=== PATIENT | male | born 1930 | race Caucasian/White ===

== ENCOUNTER 2019-11-14 14:53 | Emergency (ER) | payer OTHER ==
[2019-11-14] MEDS ORDERED: HYDRALAZINE HCL 20 MG/ML VIAL ONE ×2 (16:02→16:54)
[2019-11-14 16:30] LABS: Absolute Lymphocytes (CBC) 1.3 K/uL (0.7-4.9); Basophils % 0.8 % (0-1.3); Lymphocytes % 20.4 % (15.3-44.8); MPV 10.5 fL (7.6-11.3); RBC Red Blood Cell Count 5.02 M/uL (4.33-5.43)
[2019-11-14 16:32] LABS: Potassium 4.2 mmol/L (3.5-5.1)
[2019-11-14] MEDS ORDERED: METOPROLOL TARTRATE 5 MG/5 ML INJ IV ONE (16:54)
--- NOTE | 2019-11-14 17:18 | EDPHYS ---
Physician Documentation [facility] Name: Sandeep Bowie Age: 89 yrs Sex: Male : 1930 Arrival Date: 11/14/2019 Time: 14:56 Bed 28 Private MD: ED Physician Dylan Bryant HPI: 11/13 16:36 This 89 yrs old Male presents to ER via EMS with complaints of High Blood jr8 Pressure. 16:36 The patient has elevated blood pressure and discovered this at a physician's office, [facility] and sent to the emergency department for evaluation. Onset: The symptoms/episode began/occurred acutely, today. Associated signs and symptoms: The patient has no apparent associated signs or symptoms. Severity of symptoms: At its worst the blood pressure was moderate, in the emergency department the blood pressure is unchanged. It is unknown whether or not the patient has had similar symptoms in the past. The patient has been recently seen by a physician:. Patient was at PCP office for routine check up today. Stated that they found that his blood pressure was markedly elevated and that they wanted him evaluated in ED and then started him on new medications. Patient denies having any symptoms . Historical: - Allergies: 15:04 No Known Allergies; vc - Home Meds: 15:04 carvedilol 25 mg oral tab 1 tab 2 times per day [Active]; amlodipine 5 mg tab 1 tab vc once daily [Active]; - PMHx: 15:04 Hypertension; vc - PSHx: 15:04 None; vc - Immunization history:: Adult Immunizations up to date, Flu vaccine is up to date. - Social history:: Smoking status: Patient denies any tobacco usage or history of. ROS: 16:36 Eyes: Negative for injury, pain, redness, and discharge, ENT: Negative for injury, jr8 pain, and discharge, Neck: Negative for injury, pain, and swelling, Cardiovascular: Negative for chest pain, palpitations, and edema, Respiratory: Negative for shortness of breath, cough, wheezing, and pleuritic chest pain, Abdomen/GI: Negative for abdominal pain, nausea, vomiting, diarrhea, and constipation, Back: Negative for injury and pain, MS/Extremity: Negative for injury and deformity, Skin: Negative for injury, rash, and discoloration, Neuro: Negative for headache, weakness, numbness, tingling, and seizure. Exam: 16:36 Eyes: Pupils equal round and reactive to light, extra-ocular motions intact. Lids and jr8 lashes normal. Conjunctiva and sclera are non-icteric and not injected. Cornea within normal limits. Periorbital areas with no swelling, redness, or edema. ENT: Nares patent. No nasal discharge, no septal abnormalities noted. Tympanic membranes are normal and external auditory canals are clear. Oropharynx with no redness, swelling, or masses, exudates, or evidence of obstruction, uvula midline. Mucous membranes moist. Neck: Trachea midline, no thyromegaly or masses palpated, and no cervical lymphadenopathy. Supple, full range of motion without nuchal rigidity, or vertebral point tenderness. No Meningismus. Cardiovascular: Regular rate and rhythm with a normal S1 and S2. No gallops, murmurs, or rubs. Normal PMI, no JVD. No pulse deficits. Respiratory: Lungs have equal breath sounds bilaterally, clear to auscultation and percussion. No rales, rhonchi or wheezes noted. No increased work of breathing, no retractions or nasal flaring. Abdomen/GI: Soft, non-tender, with normal bowel sounds. No distension or tympany. No guarding or rebound. No evidence of tenderness throughout. Back: No spinal tenderness. No costovertebral tenderness. Full range of motion. Skin: Warm, dry with normal turgor. Normal color with no rashes, no lesions, and no evidence of cellulitis. MS/ Extremity: Pulses equal, no cyanosis. Neurovascular intact. Full, normal range of motion. Neuro: Awake and alert, GCS 15, oriented to person, place, time, and situation. Cranial nerves II-XII grossly intact. Motor strength 5/5 in all extremities. Sensory grossly intact. Cerebellar exam normal. Normal gait. 16:36 ECG was reviewed by the Attending Physician. Vital Signs: 15:00 BP 214 / 98; Pulse 79; Resp 20; Temp 97.9(O); Pulse Ox 100% ; lt1 15:30 BP 171 / 146; Pulse 76; Resp 18; Pulse Ox 100% on R/A; vc 16:00 BP 212 / 108; Pulse 75; Resp 18; Pulse Ox 100% on R/A; vc 17:00 BP 175 / 100; Pulse 72; Resp 18; Pulse Ox 100% on R/A; vc 17:21 BP 169 / 109; Pulse 90; Resp 19; Pulse Ox 100% on R/A; vc MDM: 15:45 Patient medically screened. jr8 17:16 Data reviewed: vital signs, nurses notes, lab test result(s), EKG. Data interpreted: jr8 Pulse oximetry: on room air is 100 %. Interpretation: normal. Counseling: I had a detailed discussion with the patient and/or guardian regarding: the historical points, exam findings, and any diagnostic results supporting the discharge/admit diagnosis, lab results, the need for outpatient follow up, a family practitioner, to return to the emergency department if symptoms worsen or persist or if there are any questions or concerns that arise at home. ED course: Patient remains asymptomatic at this time. BP slowly coming down. Will d/c home to fill prescriptions. If he were to become symptomatic to come back for further evaluation. Patient good with this. . 03 15:51 Order name: CBC with Diff [facility] 11/13 15:51 Order name: Basic Metabolic Panel [facility] 11/13 16:32 Order name: CBC with Automated Diff; Complete Time: 16:35 EDMS 11/13 16:34 Order name: Basic Metabolic Panel; Complete Time: 16:35 EDMS 11/13 15:51 Order name: IV; Complete Time: 16:10 8 11/13 15:51 Order name: EKG - Nurse/Tech; Complete Time: 15:51 jr8 EC:36 Rate is 79 beats/min. Rhythm is regular with Unifocal PVCs. Left axis deviation noted. jr8 IL interval is normal at 184 msec. QRS interval is normal at 112 msec. QT interval is normal at 428 msec. No Q waves. T waves are Normal. No ST changes noted. Clinical impression: No evidence of ischemia and Sinus Rhythm with occasional PVC. Interpreted by me. Reviewed by me. Administered Medications: 16:09 Drug: hydrALAZINE 10 mg Route: IV; Rate: calculated rate; Site: left antecubital; vc 17:33 Follow up: IV Status: Completed infusion; IV Intake: 5ml vc 17:03 Drug: hydrALAZINE 10 mg Route: IV; Rate: calculated rate; Site: left antecubital; vc 17:32 Follow up: IV Status: Completed infusion; IV Intake: 5ml vc 17:04 Drug: Metoprolol 5 mg Route: IVP; Site: left antecubital; vc 17:31 Follow up: Response: No adverse reaction; Blood pressure is lowered vc Disposition: 11/14 07:41 Co-signature as Attending Physician, Dylan Bryant MD I agree with the assessment and kdr plan of care. Disposition: 11/14/19 17:17 Discharged to Home. Impression: Essential (primary) hypertension. - Condition is Stable. - Discharge Instructions: Hypertension, DASH Eating Plan, Managing Your Hypertension. - Medication Reconciliation Form, Thank You Letter, Antibiotic Education, Prescription Opioid Use form. - Follow up: Private Physician; When: 5 - 6 days; Reason: Recheck today's complaints, Continuance of care, Re-evaluation by your physician. - Problem is new. - Symptoms have improved. Signatures: Dispatcher [employer] EDND Dylan Bryant MD MD kdr Roszak, Josh, PA PA jr8 Abigail Bruce RN RN vc Corrections: (The following items were deleted from the chart) 11/13 17:33 17:17 11/14/2019 17:17 Discharged to Home. Impression: Essential (primary) vc hypertension. Condition is Stable. Forms are Medication Reconciliation Form, Thank You Letter, Antibiotic Education, Prescription Opioid Use. Follow up: Private Physician; When: 5 - 6 days; Reason: Recheck today's complaints, Continuance of care, Re-evaluation by your physician. Problem is new. Symptoms have improved. jr8
--- NOTE | 2019-11-14 17:18 | ER ---
Nurse's Notes [facility] Name: Sandeep Bowie Age: 89 yrs Sex: Male : 1930 Arrival Date: 11/14/2019 Time: 14:56 Bed 28 Private MD: Diagnosis: Essential (primary) hypertension Presentation: 11/13 14:59 Chief complaint: EMS states: "Patient was at the [place] clinic across the street when the nurses called us stating his BP was extremely high, when we picked him up his BP was 228/130 on left arm and 216/142 on right arm. He was administered 25mg carvedilol PO at the [facility], he is asymptomatic.". Coronavirus screen: The patient has NOT traveled to a country currently being monitored by the CDC within the last 14 days. Proceed with normal triage procedures. Ebola Screen: No symptoms or risks identified at this time. Initial Sepsis Screen: Does the patient meet any 2 criteria? No. Patient's initial sepsis screen is negative. Does the patient have a suspected source of infection? No. Patient's initial sepsis screen is negative. Risk Assessment: Do you want to hurt yourself or someone else? Patient reports no desire to harm self or others. Care prior to arrival: Medication(s) given: Carvedilol 25mg IV initiated. 20 GA, in the right forearm. 14:59 Method Of Arrival: EMS: [facility] 14:59 Acuity: LEONID 3 vc 15:05 Onset of symptoms was November 14, 2019. vc Triage Assessment: 15:05 General: Appears in no apparent distress. uncomfortable, Behavior is calm, cooperative, vc appropriate for age. Pain: Denies pain. Historical: - Allergies: 15:04 No Known Allergies; vc - Home Meds: 15:04 carvedilol 25 mg oral tab 1 tab 2 times per day [Active]; amlodipine 5 mg tab 1 tab vc once daily [Active]; - PMHx: 15:04 Hypertension; vc - PSHx: 15:04 None; vc - Immunization history:: Adult Immunizations up to date, Flu vaccine is up to date. - Social history:: Smoking status: Patient denies any tobacco usage or history of. Screenin:05 Abuse screen: Denies threats or abuse. Nutritional screening: No deficits noted. vc Tuberculosis screening: No symptoms or risk factors identified. Fall Risk None identified. Assessment: 15:00 General: Appears in no apparent distress. comfortable, Behavior is calm, cooperative, vc appropriate for age. Pain: Denies pain. Neuro: Level of Consciousness is awake, alert, obeys commands, Oriented to person, place, time, situation, Appropriate for age. Cardiovascular: Denies chest pain. Respiratory: Airway is patent Respiratory effort is even, unlabored, Respiratory pattern is regular, symmetrical. GI: No signs and/or symptoms were reported involving the gastrointestinal system. : No signs and/or symptoms were reported regarding the genitourinary system. EENT: No signs and/or symptoms were reported regarding the EENT system. Derm: Skin temperature is warm. Musculoskeletal: Circulation, motion, and sensation intact. Range of motion: intact in all extremities. 16:00 Reassessment: Patient and/or family updated on plan of care and expected duration. Pain vc level reassessed. Patient is alert, oriented x 3, equal unlabored respirations, skin warm/dry/pink. Patient denies pain at this time. 17:00 Reassessment: Patient and/or family updated on plan of care and expected duration. Pain vc level reassessed. Patient is alert, oriented x 3, equal unlabored respirations, skin warm/dry/pink. Patient denies pain at this time. Vital Signs: 15:00 BP 214 / 98; Pulse 79; Resp 20; Temp 97.9(O); Pulse Ox 100% ; lt1 15:30 BP 171 / 146; Pulse 76; Resp 18; Pulse Ox 100% on R/A; vc 16:00 BP 212 / 108; Pulse 75; Resp 18; Pulse Ox 100% on R/A; vc 17:00 BP 175 / 100; Pulse 72; Resp 18; Pulse Ox 100% on R/A; vc 17:21 BP 169 / 109; Pulse 90; Resp 19; Pulse Ox 100% on R/A; vc ED Course: 14:56 Patient arrived in ED. vc 14:59 Abigail Bruce, RN is Primary Nurse. vc 15:03 Triage completed. vc 15:05 Arm band placed on. vc 15:06 Patient has correct armband on for positive identification. Placed in gown. Bed in low vc position. Call light in reach. vehicle monitor technician on. Pulse ox on. NIBP on. 15:44 Morris Daley PA is PHCP. jr8 15:44 Dylan Bryant MD is Attending Physician. jr8 16:10 Basic Metabolic Panel Sent. vc 16:10 CBC with Diff Sent. vc 17:32 No provider procedures requiring assistance completed. IV discontinued, intact, vc bleeding controlled, No redness/swelling at site. Pressure dressing applied. Administered Medications: 16:09 Drug: hydrALAZINE 10 mg Route: IV; Rate: calculated rate; Site: left antecubital; vc 17:33 Follow up: IV Status: Completed infusion; IV Intake: 5ml vc 17:03 Drug: hydrALAZINE 10 mg Route: IV; Rate: calculated rate; Site: left antecubital; vc 17:32 Follow up: IV Status: Completed infusion; IV Intake: 5ml vc 17:04 Drug: Metoprolol 5 mg Route: IVP; Site: left antecubital; vc 17:31 Follow up: Response: No adverse reaction; Blood pressure is lowered vc Intake: 17:32 IV: 5ml; Total: 5ml. vc 17:33 IV: 5ml; Total: 10ml. vc Outcome: 17:17 Discharge ordered by . jr8 17:32 Discharged to home ambulatory, with family. vc 17:32 Condition: good 17:32 Discharge instructions given to patient, Instructed on discharge instructions, follow up and referral plans. Demonstrated understanding of instructions, follow-up care. 17:33 Patient left the ED. vc Signatures: Morris Daley PA PA jr8 Michelle lt1 Abigail Bruce RN RN vc
[2019-11-14 18:06] VITALS: TEMP 97.9; O2SAT 100
[2019-11-14 18:12] VITALS: BP 169/109
--- NOTE | 2019-11-15 12:33 | EKG ---
Test Date: 2019-11-14 Test Time: 14:59:31 Int[facility] Care [facility] Paramedic: ELIUD MEASUREMENT RESULTS: Intervals: Rate: 79 NH: 184 QRSD: 112 QT: 374 QTc: 428 [place]: P: 40 NH: 184 QRS: -35 T: 62 INTERPRETIVE STATEMENTS: Sinus rhythm with occasional premature ventricular complexes Left axis deviation Abnormal ECG No previous ECG available for comparison Electronically Signed On 11-15-19 12:30:54 CDT by Harrison Hitchcock
== END 2019-11-14 17:33 | disposition home or self-care (01) ==
LOC: ER 14:53
DX: I10 Essential (primary) hypertension (principal)
CPT/HCPCS: 96365; 93005; 85025; 80048; 36415; 96375; 99284; J0360 ×2

== ENCOUNTER 2020-06-06 23:20 | Emergency (ER) | payer OTHER ==
[2020-06-06] MEDS ORDERED: DERMABOND SKIN ADHESIVE TOP ONE (23:50)
[2020-06-06] MEDS ORDERED: LIDOCAINE 1% MPF 30 ML VIAL ONE (23:50)
[2020-06-07] MEDS ORDERED: TETANUS & DIPHTHERIA TOX,ADULT 0.5 ML VIAL ONE (00:42)
[2020-06-07] MEDS ORDERED: DERMABOND SKIN ADHESIVE TOP ONE (00:57)
[2020-06-07 01:00] LABS: Absolute Lymphocytes (CBC) 1.6 K/uL (0.7-4.9); Basophils % 1.2 % (0-1.3); Hematocrit 42.2 % (39.6-49.0); Lymphocytes % 22.8 % (15.3-44.8); MPV 9.5 fL (7.6-11.3)
[2020-06-07 01:08] LABS: Protime INR 1.12
[2020-06-07 01:30] LABS: Albumin 3.5 g/dL (3.4-5.0); Bilirubin Direct 0.2 mg/dL (0-0.2); Bilirubin Total 0.6 mg/dL (0.2-1.0); Potassium 3.6 mmol/L (3.5-5.1); Protein, Total 7.1 g/dL (6.4-8.2)
--- NOTE | 2020-06-07 01:56 | EDPHYS ---
Physician Documentation [facility] Name: Sandeep Bowie Age: 89 yrs Sex: Male : 1930 Arrival Date: 06/06/2020 Time: 23:25 Bed 4 Private MD: ED Physician Gurjit Jaramillo HPI: 06/07 00:01 This 89 yrs old Male presents to ER via EMS with complaints of Fall Injury. mh7 00:01 Details of fall: The patient fell from an upright position, while walking. Onset: The mh7 symptoms/episode began/occurred just prior to arrival, today. Associated injuries: The patient sustained injury to the head, abrasion, laceration, of the scalp. Severity of symptoms: At their worst the symptoms were moderate, just prior to arrival, in the emergency department the symptoms are unchanged. Patient was at a bar and had multiple beers and had some witnessed falls. He then went home and fell. His son called EMS to bring him to the hospital.. Historical: - Allergies: 06/06 23:37 No Known Allergies; rv - PMHx: 23:37 Hypertension; rv - PSHx: 23:37 None; rv - Immunization history: Last tetanus immunization: unknown. - Social history:: Smoking status: Patient denies any tobacco usage or history of. ROS: 06/07 00:20 Constitutional: Negative for fever, chills, and weight loss, Eyes: Negative for injury, mh7 pain, redness, and discharge, ENT: Negative for injury, pain, and discharge, Neck: Negative for injury, pain, and swelling, Cardiovascular: Negative for chest pain, palpitations, and edema, Respiratory: Negative for shortness of breath, cough, wheezing, and pleuritic chest pain, Abdomen/GI: Negative for abdominal pain, nausea, vomiting, diarrhea, and constipation, Back: Negative for injury and pain, : Negative for injury, bleeding, discharge, and swelling, MS/Extremity: Negative for injury and deformity, Neuro: Negative for headache, weakness, numbness, tingling, and seizure, Psych: Negative for depression, anxiety, suicide ideation, homicidal ideation, and hallucinations, Allergy/Immunology: Negative for hives, rash, and allergies, Endocrine: Negative for neck swelling, polydipsia, polyuria, polyphagia, and marked weight changes, Hematologic/Lymphatic: Negative for swollen nodes, abnormal bleeding, and unusual bruising. Exam: 00:20 Constitutional: This is a well developed, well nourished patient who is awake, alert, mh7 and in no acute distress. 00:20 Eyes: Pupils equal round and reactive to light, extra-ocular motions intact. Lids and lashes normal. Conjunctiva and sclera are non-icteric and not injected. Cornea within normal limits. Periorbital areas with no swelling, redness, or edema. ENT: Nares patent. No nasal discharge, no septal abnormalities noted. Tympanic membranes are normal and external auditory canals are clear. Oropharynx with no redness, swelling, or masses, exudates, or evidence of obstruction, uvula midline. Mucous membranes moist. Neck: Trachea midline, no thyromegaly or masses palpated, and no cervical lymphadenopathy. Supple, full range of motion without nuchal rigidity, or vertebral point tenderness. No Meningismus. Chest/axilla: Normal chest wall appearance and motion. Nontender with no deformity. No lesions are appreciated. Cardiovascular: Regular rate and rhythm with a normal S1 and S2. No gallops, murmurs, or rubs. Normal PMI, no JVD. No pulse deficits. Respiratory: Lungs have equal breath sounds bilaterally, clear to auscultation and percussion. No rales, rhonchi or wheezes noted. No increased work of breathing, no retractions or nasal flaring. Abdomen/GI: Soft, non-tender, with normal bowel sounds. No distension or tympany. No guarding or rebound. No evidence of tenderness throughout. Back: No spinal tenderness. No costovertebral tenderness. Full range of motion. 00:20 Head/face: Exam is negative for fuentes signs, deformity, ecchymosis, erythema, raccoon eyes, Noted is a laceration(s), that is superficial, of the scalp, multiple. 00:20 Skin: 00:20 Neuro: 02:00 Skin: mh7 02:00 Neuro: Orientation: is normal, Mentation: is normal, Memory: is normal, Cranial nerves: grossly normal, Cerebellar function: is grossly normal, Motor: is normal, Sensation: is normal, Gait: is unsteady, Deep tendon reflexes are normal, Babinski testing is normal, seizure activity, is not displayed by the patient, Abnormal movements: there are no abnormal movements. 05:28 Musculoskeletal/extremity: Extremities: noted in the left forearm: skin tear, ROM: mh7 intact in all extremities, Circulation is intact in all extremities. Pulses: are normal with no appreciated deficits, Perfusion: the patient is normally perfused throughout, Perfusion: the extremity is normally perfused throughout, Sensation intact. Compartment Syndrome exam of affected extremity: is normal. no pain, no numbness, no tingling, no sensation deficit, no palor, no weak pulses, Joints: All joints appear normal with full range of motion. 05:28 Skin: injury, laceration(s), the wound is approximately 8 cm(s), with a depth of 0.5 cm(s), of the scalp, the second wound is approximately 6 cm(s), with a depth of 0.25 cm(s), of the left forearm, that can be described as Vital Signs: 06/06 23:33 BP 204 / 104; Pulse 66; Resp 17; Temp 97.6; Pulse Ox 100% ; Weight 81.65 kg; Height 5 rv ft. 11 in. (180.34 cm); Pain 0/10; 06/07 00:30 BP 175 / 90; Pulse 72; Resp 17; Pulse Ox 99% on R/A; rv 01:30 BP 189 / 102; Pulse 67; Resp 16; Pulse Ox 98% on R/A; rv 02:15 BP 176 / 96; Pulse 67; Resp 16; Temp 98(TE); Pulse Ox 99% ; rv 06/06 23:33 Body Mass Index 25.10 (81.65 kg, 180.34 cm) rv [place] Coma Score: 06/06 23:33 Eye Response: spontaneous(4). Verbal Response: oriented(5). Motor Response: obeys rv commands(6). Total: 15. 06/07 00:30 Eye Response: spontaneous(4). Verbal Response: oriented(5). Motor Response: obeys rv commands(6). Total: 15. 01:30 Eye Response: spontaneous(4). Verbal Response: oriented(5). Motor Response: obeys rv commands(6). Total: 15. 02:18 Eye Response: spontaneous(4). Verbal Response: oriented(5). Motor Response: obeys rv commands(6). Total: 15. Trauma Score (Adult): 10/03 23:33 Eye Response: spontaneous(1); Verbal Response: oriented(1); Motor Response: obeys rv commands(2); Systolic BP: > 89 mm Hg(4); Respiratory Rate: 10 to 29 per min(4); Trinity Score: 15; Trauma Score: 12 Laceration: 06/07 00:50 Wound Repair of 8cm ( 3.1in ) subcutaneous laceration to right temporal area and top of pm1 head. Irregularly shaped.. Distal neuro/vascular/tendon intact. Anesthesia: Local anesthetic administered with 5 mls of 1% lidocaine. Wound prep: Extensive cleansing with hibiclenz by nurse, Wound irrigation with saline by nurse, Wound explored extensively, Copious irrigation. Skin closed with 12 4-0 Prolene using simple sutures and sterile technique. Patient tolerated well. 00:50 Wound Repair of 6cm ( 2.4in ) skin tears laceration to left elbow. Irregularly shaped.. pm1 Distal neuro/vascular/tendon intact. Wound prep: Extensive cleansing with hibiclenz by nurse, Wound irrigation with saline by nurse by sd, Wound explored extensively, Copious irrigation. Skin closed with 1-0 Adhesive skin closure using Dermabond. Patient tolerated well. MDM: 06/06 23:32 Patient medically screened. [facility] 06/07 01:52 Differential diagnosis: abrasion, closed head injury, contusion, fracture, laceration. [facility] Data reviewed: vital signs, nurses notes, EMS record, lab test result(s), CBC, drug level(s), alcohol, electrolytes, urinalysis, radiologic studies, CT scan. Data interpreted: Pulse oximetry: on room air is 100 %. Interpretation: normal. Counseling: I had a detailed discussion with the patient and/or guardian regarding: the historical points, exam findings, and any diagnostic results supporting the discharge/admit diagnosis, the presence of at least one elevated blood pressure reading (>120/80) during this emergency department visit, lab results, radiology results, to return to the emergency department if symptoms worsen or persist or if there are any questions or concerns that arise at home. Response to treatment: the patient's symptoms have markedly improved after treatment. 06/06 23:31 Order name: Basic Metabolic Panel; Complete Time: 01:36 [facility] 06/06 23:31 Order name: CBC with Diff; Complete Time: 01:36 [facility] 06/06 23:31 Order name: Type And Screen; Complete Time: 01:52 [facility] 06/06 23:31 Order name: Protime (+inr); Complete Time: 01:36 [facility] 06/06 23:31 Order name: Ptt, Activated; Complete Time: 01:36 [facility] 06/06 23:31 Order name: ETOH Level; Complete Time: 01:36 [facility] 06/06 23:31 Order name: CT Head C Spine [facility] 06/06 23:31 Order name: Labs collected and sent; Complete Time: 00:44 7 06/06 23:31 Order name: LFT's; Complete Time: 01:36 [facility] 06/06 23:46 Order name: Dermabond; Complete Time: 00:44 pm1 06/06 23:46 Order name: Prolene, Sutures; Complete Time: 00:44 pm1 06/06 23:46 Order name: Dressing - Wound; Complete Time: 00:44 pm1 06/06 23:46 Order name: Gloves, Sterile; Complete Time: 23:53 pm1 06/06 23:46 Order name: Setup Suture Tray; Complete Time: 23:53 pm1 Administered Medications: 06/06 23:30 Drug: Lidocaine (1 %) 5 ml {Note: PER TARSHA, YARN COMBER.} Volume: 5 ml; Route: Infiltration; rv 06/07 00:55 Follow up: Response: No adverse reaction rv 00:45 Drug: Tetanus-Diphtheria Toxoid Adult 0.5 ml {Director Ambulatory: [employer]. Exp: rv 11/06/2022. Lot #: [id number]. } Route: IM; Site: left deltoid; 02:17 Follow up: Response: No adverse reaction rv 02:16 Drug: amLODIPine 5 mg Route: PO; rv 02:17 Follow up: Response: Medication administered at discharge. rv 02:17 Drug: carvedilol 25 mg Route: PO; rv 02:17 Follow up: Response: Medication administered at discharge. rv Disposition: 05:28 Co-signature as Attending Physician, Gurjit Jaramillo MD. 7 Disposition: 06/07/20 01:56 Discharged to Home. Impression: Alcohol Intoxication, Scalp Lacerations, Hypertension, Fall-Mechanical. - Condition is Stable. - Discharge Instructions: Alcohol Intoxication, Czlv-ae-Hidk, Hypertension, [id number], Laceration Care, Adult, Btam-ti-Rlom, Fall Prevention in Hospitals, Adult. - Medication Reconciliation Form, Thank You Letter, Antibiotic Education, Prescription Opioid Use form. - Follow up: Private Physician; When: 1 - 2 days; Reason: Wound Recheck, Worsening of condition, Recheck today's complaints, Continuance of care, Re-evaluation by your physician. - Problem is new. - Symptoms have improved. Signatures: Dispatcher [employer] EDMS Yonis Munroe, YARN COMBER YARN COMBER pm1 Feliciano Humphrey RN RN rv Gurjit Jaramillo MD MD mh7 Corrections: (The following items were deleted from the chart) 01:57 01:56 06/07/2020 01:56 Discharged to Home. Impression: Alcohol Intoxication; Scalp mh7 Lacerations; Hypertension. Condition is Stable. Forms are Medication Reconciliation Form, Thank You Letter, Antibiotic Education, Prescription Opioid Use. Follow up: Private Physician; When: 1 - 2 days; Reason: Wound Recheck, Worsening of condition, Recheck today's complaints, Continuance of care, Re-evaluation by your physician. Problem is new. Symptoms have improved. 7 02:20 01:57 06/07/2020 01:56 Discharged to Home. Impression: Alcohol Intoxication; Scalp rv Lacerations; Hypertension; Fall-Mechanical. Condition is Stable. Forms are Medication Reconciliation Form, Thank You Letter, Antibiotic Education, Prescription Opioid Use. Follow up: Private Physician; When: 1 - 2 days; Reason: Wound Recheck, Worsening of condition, Recheck today's complaints, Continuance of care, Re-evaluation by your physician. Problem is new. Symptoms have improved. 7
--- NOTE | 2020-06-07 01:56 | ER ---
Nurse's Notes [facility] Name: Sandeep Bowie Age: 89 yrs Sex: Male : 1930 Arrival Date: 06/06/2020 Time: 23:25 Bed 4 Private MD: Diagnosis: Alcohol Intoxication;Scalp Lacerations;Hypertension;Fall-Mechanical Presentation: 06/06 23:28 Chief complaint: Patient states: DENIES ANY PAIN. EMS states: PATIENT WAS AT THE BAR rv [employer]INK[employer] AND FELL MULTIPLE TIMES, WENT HOME. FAMILY HAD TO CHECK HIM BECAUSE THEY WERE CONCERNED AND FOUND PATIENT IN THE BED WITH WOUNDS ON THE LEFT ARM AND HEAD. Care prior to arrival: None. Mechanism of Injury: Fall from standing position. Trauma event details: Injury occurred in the [facility], Injury occurred: at home. Injury occurred: June 06, 2020 Injury occurred at: 22:30. 23:28 Acuity: LEONID 2 rv 23:28 Method Of Arrival: EMS: [facility] rv 23:36 Coronavirus screen: At this time, the client does not indicate any symptoms associated rv with coronavirus-19. Ebola Screen: No symptoms or risks identified at this time. Initial Sepsis Screen: Does the patient meet any 2 criteria? No. Patient's initial sepsis screen is negative. Does the patient have a suspected source of infection? No. Patient's initial sepsis screen is negative. Risk Assessment: Do you want to hurt yourself or someone else? Patient reports no desire to harm self or others. Onset of symptoms was June 06, 2020 at 22:36. Trauma Activation: Physician: ED Physician; Name: MD OBED; Notified At: 23:15; Arrived At: 23:20 Physician: General Surgeon; Name: ; Notified At: 23:15; Arrived At: Physician: Radiology; Name: ; Notified At: 23:15; Arrived At: Physician: Respiratory; Name: ; Notified At: 23:15; Arrived At: Physician: Lab; Name: ; Notified At: 23:15; Arrived At: Historical: - Allergies: 23:37 No Known Allergies; rv - PMHx: 23:37 Hypertension; rv - PSHx: 23:37 None; rv - Immunization history: Last tetanus immunization: unknown. - Social history:: Smoking status: Patient denies any tobacco usage or history of. Screenin:31 Abuse screen: Denies threats or abuse. Denies injuries from another. Nutritional rr5 screening: No deficits noted. Tuberculosis screening: No symptoms or risk factors identified. Fall Risk Fall in past 12 months (25 points). No secondary diagnosis (0 pts). IV access (20 points). Gait- Impaired (20 pts.). Mental Status- Overestimates/Forgets Limitations (15 pts.). Total Sanchez Fall Scale indicates High Risk Score (45 or more points). Fall prevention measures have been instituted. Side Rails Up X 2 Frequent Obs/Assessments Occuring As available patient and family educated on Fall Prevention Program and Strategies. Primary Survey: 23:29 NO uncontrolled hemorrhage observed. A: The patient is alert. Airway: patent, No rr5 supplemental oxygen in use on arrival. Breathing/Chest: Respiratory pattern: regular, Respiratory effort: spontaneous, unlabored, Breath sounds: clear, bilaterally. Chest inspection: symmetrical rise and fall of the chest. Circulation: Pulses: palpable right radial artery and left radial artery. Skin color: pink, Skin temperature: warm, dry. Disability Alert. Exposure/Environment: All clothing and personal items were removed. There is no evidence of uncontrolled external bleeding. Obvious injury(ies) are noted at this time: lacerated wound head, skin peeled left lebow A warming method has been applied: A warm blanket has been provided to the patient. 06/07 02:19 Reassessment Airway Airway Patent Breathing/Chest Respiratory pattern Regular rv Respiratory effort Spontaneous Unlabored Breath sounds Clear. Secondary Survey: 06/06 23:30 HEENT: Head Other lacerated wound noted Face No injury/deformity Eyes: No injury or rr5 deformity noted. to bilateral eyes. Ears: clear Nose: clear Throat: is clear with gag reflex present. Gastrointestinal: Abdomen is soft. : No signs and/or symptoms were reported regarding the genitourinary system. Musculoskeletal: No signs and/or symptoms reported regarding the musculoskeletal system. Capillary refill < 3 seconds. Assessment: 23:29 General: Appears in no apparent distress. comfortable, Behavior is calm, cooperative. rr5 Pain: Denies pain. Neuro: Level of Consciousness is awake, alert, obeys commands, Oriented to person, place, time. Cardiovascular: Capillary refill < 3 seconds Patient's skin is warm and dry. Respiratory: Airway is patent Respiratory effort is even, unlabored, Respiratory pattern is regular, symmetrical. GI: No signs and/or symptoms were reported involving the gastrointestinal system. : No signs and/or symptoms were reported regarding the genitourinary system. EENT: clear. Derm: Skin temperature is warm Wound noted top of head Wound is lacerated wound and skin peeled left elbow Bruising that is dark purple, on right arm and left arm. Musculoskeletal: Circulation, motion, and sensation intact. Capillary refill < 3 seconds. 23:31 General: Appears comfortable, Behavior is calm, cooperative. Pain: Denies pain. Neuro: rv Level of Consciousness is awake, alert, obeys commands, Oriented to person, place, time, situation, Moves all extremities. Full function. Cardiovascular: Patient's skin is warm and dry. Respiratory: Airway is patent Respiratory effort is even, unlabored, Respiratory pattern is regular, symmetrical. Derm: Wound noted scalp, right arm and left arm. Injury Description: Laceration sustained to scalp. Vital Signs: 23:33 BP 204 / 104; Pulse 66; Resp 17; Temp 97.6; Pulse Ox 100% ; Weight 81.65 kg; Height 5 rv ft. 11 in. (180.34 cm); Pain 0/10; 04 00:30 BP 175 / 90; Pulse 72; Resp 17; Pulse Ox 99% on R/A; rv 01:30 BP 189 / 102; Pulse 67; Resp 16; Pulse Ox 98% on R/A; rv 02:15 BP 176 / 96; Pulse 67; Resp 16; Temp 98(TE); Pulse Ox 99% ; rv 06/06 23:33 Body Mass Index 25.10 (81.65 kg, 180.34 cm) rv Trinity Coma Score: 06/06 23:33 Eye Response: spontaneous(4). Verbal Response: oriented(5). Motor Response: obeys rv commands(6). Total: 15. 04 00:30 Eye Response: spontaneous(4). Verbal Response: oriented(5). Motor Response: obeys rv commands(6). Total: 15. 01:30 Eye Response: spontaneous(4). Verbal Response: oriented(5). Motor Response: obeys rv commands(6). Total: 15. 02:18 Eye Response: spontaneous(4). Verbal Response: oriented(5). Motor Response: obeys rv commands(6). Total: 15. Trauma Score (Adult): 06/06 23:33 Eye Response: spontaneous(1); Verbal Response: oriented(1); Motor Response: obeys rv commands(2); Systolic BP: > 89 mm Hg(4); Respiratory Rate: 10 to 29 per min(4); Trinity Score: 15; Trauma Score: 12 ED Course: 23:25 Patient arrived in ED. lp1 23:26 Feliciano Humphrey, BETHANY is Primary Nurse. rv 23:29 Gurjit Jaramillo MD is Attending Physician. 7 23:31 Triage completed. rv 23:31 Inserted saline lock: 18 gauge in left antecubital area, using aseptic technique. rr5 23:33 Patient has correct armband on for positive identification. Placed in gown. Bed in low rr5 position. Call light in reach. Side rails up X2. Pulse ox on. NIBP on. 23:36 Patient maintains SpO2 saturation greater than 95% on room air. rv 23:37 Thermoregulation: warm blanket given to patient. rv 23:37 Arm band placed on right wrist. Patient placed in the treatment room, on a stretcher, rv Patient notified of wait time. 06/07 00:01 CT Head C Spine In Process Unspecified. EDMS 00:30 Assist provider with laceration repair on head and top of head that was 2.5 cm. or less rr5 using sutures. Set up tray. Performed by Gurjit Jaramillo MD Dressed with Neosporin, Patient tolerated well. 02:00 IV discontinued, intact, bleeding controlled, No redness/swelling at site. Pressure rr5 dressing applied. 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 Exp: rv 11/06/2022. Lot #: [id number]. } Route: IM; Site: left deltoid; 02:17 Follow up: Response: No adverse reaction rv 02:16 Drug: amLODIPine 5 mg Route: PO; rv 02:17 Follow up: Response: Medication administered at discharge. rv 02:17 Drug: carvedilol 25 mg Route: PO; rv 02:17 Follow up: Response: Medication administered at discharge. rv Intake: 02:15 PO: 50ml; Total: 50ml. rv Output: 02:15 Urine: 400ml (Voided); Total: 400ml. rv Outcome: 01:56 Discharge ordered by MD. reddy 02:19 Patient's length of stay in the Emergency Department was greater than [address] SCAN rv RESULTPatient's length of stay extended due to 02:19 Discharged to home via wheelchair, with family. rv 02:19 Condition: good 02:19 Discharge instructions given to patient, family, Instructed on discharge instructions, follow up and referral plans. Demonstrated understanding of instructions, follow-up care. 02:20 Patient left the ED. rv Signatures: Dispatcher [employer] EDMS Zoya Maier RN RN lp1 Feliciano Humphrey RN RN rv Ha Tierney RN RN rr5 Gurjit Jaramillo MD MD 7
[2020-06-07] MEDS ORDERED: AMLODIPINE 5 MG TAB ONE (02:12)
[2020-06-07] MEDS ORDERED: carvediloL 6.25 MG TAB ONE (02:12)
[2020-06-07 02:29] VITALS: BP 176/96; TEMP 98; O2SAT 99
--- NOTE | 2020-06-10 11:38 | RAD REPORT ---
EXAM DESCRIPTION: CT Spine Mpr Wo Con CLINICAL HISTORY: Trauma/pain. COMPARISON: None available. TECHNIQUE: Axial CT of the head obtained from the skull apex to the skull base without contrast. Axi al CT images of the cervical spine obtained from thee skull base through the thoracic inlet. Sagittal and coronal reformatted images available. FINDINGS: CT head: No acute intracranial hemorrhage identified. No mass, mass effect, shift of the midline, abnormal ext ra-axial fluid collection or CT evidence of acute ischemic change identified. The ventricular system and sulcal spaces are mildly enlarged compatible with mild cerebral atrophy. Scattered areas of hyp odensity throughout the supratentorial white matter are nonspecific and may be related to chronic sma ll vessel ischemic change. The visualized paranasal sinuses and the mastoids are clear. Contusion within the right scalp soft ti ssues. No skull fracture identified. Visualized orbits and globes are unremarkable. 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 Cervical CT: Straining of the cervical lordosis may be secondary to patient positioning. The atlantoaxial, atlan todental, and occipitoatlantal intervals are preserved. No fracture identified. Vertebral body heig ht preserved. Prevertebral soft tissues are unremarkable. Zfaw-ta-ffonadur multilevel loss of intervertebral disc height with endplate spondylosis, facet arthr opathy, and uncovertebral spurring. Visualized skull base is intact. No fracture of the visualized facial bones. Visualized mastoid air c ells and paranasal sinuses are well aerated. Visualized thyroid is unremarkable. No cervical lymphadenopathy. No pneumothorax in the visualized lung apices. Carotid artery atherosclerosis. IMPRESSION: 1. No acute intracranial abnormality. 2. No acute fracture or subluxation of the cervical spine. This exam was performed according to our departmental dose-optimization program, which includes autom ated exposure control, adjustment of the mA and/or kV according to patient size and/or use of iterati ve reconstruction technique. Electronically signed by: Jarod Caceres 06/07/2020 12:12 AM CDT Due to temporary technical issues with the PACS/Fluency reporting system, reports are being signed by the in house radiologist without review as a courtesy to ensure prompt reporting. The interpreting r adiologist is fully responsible for the content of the report.
== END 2020-06-07 02:20 | disposition home or self-care (01) ==
LOC: ER 23:20
PROC: 0JQ00ZZ Repair Scalp Subcutaneous Tissue and Fascia, Open Approach (ICD-10-PCS; principal; 2020-06-07)
PROC: 0JQH0ZZ Repair Left Lower Arm Subcutaneous Tissue and Fascia, Open Approach (ICD-10-PCS; 2020-06-07)
DX: S01.01XA Laceration without foreign body of scalp, initial encounter (principal); W19.XXXA Unspecified fall, initial encounter; Y93.9 Activity, unspecified; Y92.009 Unspecified place in unspecified non-institutional (private) residence as the place of occurrence of the external cause; Z23 Encounter for immunization; I10 Essential (primary) hypertension
CPT/HCPCS: 36415; 70450; 72125; 80048; 80076; 80320; 85025; 85610; 85730; 86850; 86900; 86901; 90471; 90714; 99284